=== PATIENT | male | born 1935 | race African-American/Black ===

== ENCOUNTER 2018-02-28 08:43 | Inpatient (IN) | payer MEDICARE, OTHER ==
[2018-02-28] VITALS (36 sets, daily range): BP systolic 107–160; BP diastolic 54–104
[~2018-02-28] VITALS: Ht 182.9 cm; Wt 76.7 kg
[2018-02-28] MEDS ORDERED: SODIUM CHLORIDE 0.9% 1,000 ML IV ONE ×3 (09:01→11:15)
[2018-02-28] MEDS ORDERED: PIPERACILLIN/TAZ 3.375G PREMIX 50 ML IV ONE (10:00)
[2018-02-28] MEDS ORDERED: VANCOMYCIN 1 G PREMIX 200 ML IV ONE (10:00)
[2018-02-28] MEDS ORDERED: SODIUM CHLORIDE 0.9% 1000ML BAG (SEPSIS BOLUS) IV ONE (10:00)
[2018-02-28 10:09] LABS: BG BASE EXCESS -8.3 mmol/L (-2.0-2.0); BG CARBOXYHEMOGLOBIN 0.4 % (0.5-1.5); BG DEOXYHEMOGLOBIN 2.7 % (0.0-5.0); BG FRACTION INSPIRED OXYGEN 21; BG HCO3 ACT 15.1 mmol/L (22.0-26.0); BG METHEMOGLOBIN 0.3 % (0.0-1.5); BG OXYGEN SATURATION 97.3 % (92.0-98.5); BG OXYHEMOGLOBIN 96.6 % (94.0-97.0); BG PCO2 26.8 mmHg (35.0-45.0); BG PO2 105.7 mmHg (75.0-100.0); BG SAMPLE SITE RIGHT BRACHIAL; BG TOTAL HEMOGLOBIN 15.1 g/dL (12.0-18.0); BG VENT MODE ROOM AIR
[2018-02-28 10:22] LABS: HEMATOCRIT. 50.9 % (42.0-52.0); HEMOGLOBIN. 16.6 g/dL (14.0-18.0); MEAN CORPUSCULAR HEMOGLOBIN 29.4 pg (28.0-32.0); MEAN CORPUSCULAR VOLUME 90.3 fL (80.0-94.0); MEAN PLATELET VOLUME 9.4 fl (7.4-10.4); PLATELET 185 x1000/uL (130-400); RED BLOOD CELL COUNT 5.64 mill/uL (4.7-6.1); RED CELL DISTRIBUTION WIDTH 14.9 % (11.6-14.6)
[2018-02-28 10:27] LABS: CHLORIDE 108 mEq/L (98-107)
[2018-02-28 10:35] LABS: AMMONIA < 10 uMol/L (<32); ETHANOL BLOOD < 10 mg/dL
[2018-02-28 10:50] LABS: CREATINE KINASE 1672 IU/L (39-308); PLATELET ESTIMATE NORMAL
[2018-02-28] MEDS ORDERED: DEXTROSE 50% WATER 50ML SYRINGE IV ONE ×2 (11:00→12:15)
[2018-02-28] MEDS ORDERED: INSULIN REGULAR (HUMULIN R) UD 100 UNITS/ML SYR IV ONE (11:00)
[2018-02-28] MEDS ORDERED: LIDOCAINE HCL 1% 20ML VIAL (Pyxis) INJ ONE (11:34)
[2018-02-28] MEDS ORDERED: SODIUM BICARBONATE 4% (2.4MEQ) 5ML VIAL IV ONE (11:35)
[2018-02-28] MEDS ORDERED: CALCIUM GLUCONATE 100MG/ML 10ML VIAL IV ONE (11:45)
[2018-02-28] MEDS ORDERED: INSULIN REGULAR (HUMULIN R) 300UNITS/3ML IV ONE (12:00)
[2018-02-28] MEDS: CALCIUM GLUCONATE 1,000 MG in DEXT 5% WATER 100 ML IV SCH ×2 (13:12→13:24)
[2018-02-28] MEDS ORDERED: ONDANSETRON HCL 4MG/2ML VIAL IV PRN (13:45)
[2018-02-28] MEDS ORDERED: MORPHINE SULFATE 4 MG/ML CPJ (NOT FOR IM USE) IV PRN (14:45)
[2018-02-28] MEDS ORDERED: CLONIDINE 0.1MG TABLET PO PRN (14:45)
[2018-02-28] MEDS ORDERED: ACETAMINOPHEN 325MG TABLET PO PRN (14:45)
[2018-02-28] MEDS ORDERED: HYDROCODONE/ACETAMINOPHEN 5/325MG TABLET PO PRN (14:45)
[2018-02-28] MEDS ORDERED: TAMSULOSIN HCL 0.4MG SR CAPSULE PO SCH (15:00)
[2018-02-28] MEDS ORDERED: SODIUM CHLORIDE 0.9% 1,000 ML IV SCH (15:15)
[2018-02-28] MEDS ORDERED: IPRATROPIUM/ALBUTEROL 0.5-3(2.5)MG/3ML NEB HHN PRN (15:45)
[2018-02-28] MEDS ORDERED: DEXTROSE 5% WATER 1,000 ML IV SCH (16:30)
[2018-02-28] MEDS ORDERED: SODIUM BICARBONATE 8.4% 1 MEQ/ML 50ML SYR IV NR (16:30)
[2018-02-28] MEDS: PIPERACILLIN/TAZ 2.25G PREMIX 50 ML IV SCH (16:51)
[2018-02-28] MEDS: ENOXAPARIN 30MG/0.3ML SYR SUBCUT SCH (16:53)
[2018-02-28] MEDS: PANTOPRAZOLE SODIUM 40 MG/VIAL IV SCH (16:54)
[2018-02-28] MEDS ORDERED: VANCOMYCIN 500 MG PREMIX 100 ML IV NR (17:30)
[2018-02-28 17:48] LABS: HEPATITIS B SURFACE ANTIGEN NEGATIVE
[2018-02-28 18:17] LABS: HEPATITIS B CORE AB IGM NEGATIVE
[2018-02-28 18:18] LABS: HEPATITIS A AB IGM NEGATIVE (NEGATIVE)
[2018-02-28] MEDS: FOLIC ACID 1 MG, THIAMINE HCL 100 MG, MVI, ADULT NO.1 10 ML in DEXTROSE 5% WATER 1,000 ML IV SCH ×4 (19:57)
[2018-02-28] MEDS ORDERED: MINERAL OIL 30ML BOTTLE PO NR (20:00)
[2018-02-28 20:05] LABS: CLARITY URINE CLEAR (CLEAR); COLOR URINE YELLOW (YELLOW); KETONES URINE NEGATIVE (NEGATIVE); LEUKOCYTE ESTERASE URINE TRACE (NEGATIVE); NITRITE URINE NEGATIVE (NEGATIVE); OCCULT BLOOD URINE 3+ (NEGATIVE); PROTEIN URINE NEGATIVE (NEGATIVE); SPECIFIC GRAVITY URINE 1.018 (1.005-1.030); UROBILINOGEN URINE 0.2 E.U./dL (0.2-1.0)
[2018-02-28 20:16] LABS: *AMPHETAMINES SCREEN URINE NEGATIVE (NEGATIVE); *BARBITURATES SCREEN URINE NEGATIVE (NEGATIVE); *BENZODIAZEPINES SCREEN URINE NEGATIVE (NEGATIVE)
[2018-02-28 20:17] LABS: *COCAINE SCREEN URINE NEGATIVE (NEGATIVE); CANNABINOID URINE SCREEN NEGATIVE (NEGATIVE); METHADONE URINE SCREEN NEGATIVE (NEGATIVE); OPIATES URINE SCREEN NEGATIVE (NEGATIVE); PHENCYCLIDINE URINE SCREEN NEGATIVE (NEGATIVE)
[2018-02-28] MEDS: IPRATROPIUM/ALBUTEROL 0.5-3(2.5)MG/3ML NEB HHN SCH (21:57)
[2018-02-28] MEDS ORDERED: SODIUM CHLORIDE 0.9% 1,000 ML IV NR (23:34)
[2018-03-01] VITALS (95 sets, daily range): BP systolic 92–131; BP diastolic 44–93
[2018-03-01] MEDS ORDERED: METOPROLOL TARTRATE 50MG TABLET PO SCH (00:58)
[2018-03-01] MEDS: IPRATROPIUM/ALBUTEROL 0.5-3(2.5)MG/3ML NEB HHN SCH ×4 (04:31→20:30)
[2018-03-01 05:10] LABS: HEMATOCRIT. 40.5 % (42.0-52.0); HEMOGLOBIN. 13.2 g/dL (14.0-18.0); MEAN CORPUSCULAR HEMOGLOBIN 29.5 pg (28.0-32.0); MEAN CORPUSCULAR VOLUME 90.3 fL (80.0-94.0); MEAN PLATELET VOLUME 9.1 fl (7.4-10.4); PLATELET 154 x1000/uL (130-400); RED BLOOD CELL COUNT 4.48 mill/uL (4.7-6.1); RED CELL DISTRIBUTION WIDTH 14.9 % (11.6-14.6)
[2018-03-01 05:16] LABS: CHLORIDE 123 mEq/L (98-107)
[2018-03-01 05:25] LABS: PHOSPHORUS 4.1 mg/dL (2.5-4.9)
[2018-03-01 05:38] LABS: CREATINE KINASE 1572 IU/L (39-308)
[2018-03-01 06:10] LABS: PLATELET ESTIMATE NORMAL
[2018-03-01] MEDS ORDERED: DEXT 5%/0.2% NACL 1,000 ML IV SCH (06:15)
[2018-03-01] MEDS: PIPERACILLIN/TAZ 2.25G PREMIX 50 ML IV SCH (06:38)
[2018-03-01] MEDS: METOPROLOL TARTRATE 50MG TABLET NG SCH ×3 (08:19→22:19)
[2018-03-01] MEDS: PANTOPRAZOLE SODIUM 40 MG/VIAL IV SCH (08:20)
[2018-03-01] MEDS: DEXTROSE 5% WATER 1,000 ML IV SCH ×2 (08:20→21:04)
[2018-03-01 08:34] LABS: BG BASE EXCESS -2.2 mmol/L (-2.0-2.0); BG CARBOXYHEMOGLOBIN 0.7 % (0.5-1.5); BG FRACTION INSPIRED OXYGEN 28; BG HCO3 ACT 21.2 mmol/L (22.0-26.0); BG METHEMOGLOBIN 0.3 % (0.0-1.5); BG PCO2 32.6 mmHg (35.0-45.0); BG PH 7.432 (7.350-7.450); BG PO2 182.2 mmHg (75.0-100.0); BG SAMPLE SITE RIGHT RADIAL; BG TOTAL HEMOGLOBIN 13.3 g/dL (12.0-18.0); BG VENT MODE NASAL CANNULA
[2018-03-01] MEDS ORDERED: MULTIVITAMINS,THER W-MINERALS TABLET PO SCH (09:00)
[2018-03-01] MEDS ORDERED: THIAMINE HCL 100MG TABLET PO SCH (09:00)
[2018-03-01] MEDS ORDERED: LACTULOSE 20G/30ML UDC PO PRN ×2 (10:15→11:45)
[2018-03-01] MEDS ORDERED: MINERAL OIL ENEMA 133ML PR SCH (10:15)
[2018-03-01] MEDS: DOCUSATE SODIUM SUGAR FREE 100MG/10ML UDC NG SCH (10:54)
[2018-03-01] MEDS: FOLIC ACID 1 MG, THIAMINE HCL 100 MG, MVI, ADULT NO.1 10 ML in DEXTROSE 5% WATER 1,000 ML IV SCH ×4 (10:54)
[2018-03-01] MEDS ORDERED: MINERAL OIL 30ML BOTTLE PO SCH (11:00)
[2018-03-01] MEDS ORDERED: SORBITOL 70% SOLN 30ML PO NR (11:15)
[2018-03-01] MEDS ORDERED: DOCUSATE SODIUM 250MG CAPSULE PO ONE (11:45)
[2018-03-01 17:36] LABS: T4 FREE 1.14 ng/dL (0.76-1.46)
[2018-03-01] MEDS: ENOXAPARIN 30MG/0.3ML SYR SUBCUT SCH (17:56)
[2018-03-01] MEDS ORDERED: PIPERACILLIN/TAZ 2.25G PREMIX 50 ML IV SCH (18:00)
[2018-03-01 18:10] LABS: FOLIC ACID (FOLATE) SERUM >20 ng/mL ng/mL (>5.38)
[2018-03-01 18:22] LABS: VITAMIN B12 SERUM 580 pg/mL (211-911)
[2018-03-01] MEDS ORDERED: POTASSIUM CHLORIDE INJ 40 MEQ in DEXT 5% WATER 250 ML IV NR (22:00)
[2018-03-02] VITALS (82 sets, daily range): BP systolic 94–138; BP diastolic 52–96
[2018-03-02] MEDS: IPRATROPIUM/ALBUTEROL 0.5-3(2.5)MG/3ML NEB HHN SCH ×4 (01:49→19:55)
[2018-03-02] MEDS: PIPERACILLIN/TAZ 2.25G PREMIX 50 ML IV SCH ×3 (05:21→19:38)
[2018-03-02] MEDS: METOPROLOL TARTRATE 50MG TABLET NG SCH ×3 (05:22→20:52)
[2018-03-02 06:32] LABS: HEMATOCRIT. 40.3 % (42.0-52.0); HEMOGLOBIN. 13.2 g/dL (14.0-18.0); MEAN CORPUSCULAR HEMOGLOBIN 30.3 pg (28.0-32.0); MEAN CORPUSCULAR VOLUME 92.4 fL (80.0-94.0); MEAN PLATELET VOLUME 9.8 fl (7.4-10.4); PLATELET 134 x1000/uL (130-400); RED BLOOD CELL COUNT 4.37 mill/uL (4.7-6.1); RED CELL DISTRIBUTION WIDTH 14.7 % (11.6-14.6)
[2018-03-02] MEDS: FOLIC ACID 1MG TABLET NG SCH (08:55)
[2018-03-02] MEDS: PANTOPRAZOLE SODIUM 40 MG/VIAL IV SCH ×3 (08:55→20:52)
[2018-03-02] MEDS: DOCUSATE SODIUM SUGAR FREE 100MG/10ML UDC NG SCH (08:55)
[2018-03-02] MEDS: THIAMINE HCL 100MG TABLET NG SCH (08:55)
[2018-03-02] MEDS: MULTIVITAMINS,THER W-MINERALS TABLET NG SCH (08:56)
[2018-03-02] MEDS ORDERED: DOCUSATE SODIUM SUGAR FREE 100MG/10ML UDC NG SCH (09:00)
[2018-03-02 09:08] LABS: HIV SCREEN 4G Non Reactive (Non Reactive)
[2018-03-02] MEDS: DEXTROSE 5% WATER 1,000 ML IV SCH ×2 (09:09→22:58)
[2018-03-02] MEDS ORDERED: LACTULOSE 20G/30ML UDC PO PRN (09:30)
[2018-03-02] MEDS ORDERED: SORBITOL 70% SOLN 30ML PO SCH (09:30)
[2018-03-02] MEDS ORDERED: BISACODYL 5MG TABLET PO PRN (09:30)
[2018-03-02] MEDS ORDERED: NA PHOS,M-B/NA PHOS,DI-BA ENEMA 118ML PR SCH (09:30)
[2018-03-02] MEDS ORDERED: ENOXAPARIN 80MG/0.8ML SYR SUBCUT SCH (09:45)
[2018-03-02 09:51] LABS: CHLORIDE 114 mEq/L (98-107)
[2018-03-02 09:55] LABS: AMYLASE 87 IU/L (25-115)
[2018-03-02 09:57] LABS: PHOSPHORUS 1.5 mg/dL (2.5-4.9)
[2018-03-02 11:50] LABS: PLATELET ESTIMATE NORMAL
[2018-03-02 13:07] LABS: *CREATININE RANDOM URINE 109.8 mg/dL (Not Estab.); MICROALBUMIN RANDOM URINE 47.9 ug/mL (Not Estab.)
[2018-03-02] MEDS: BISACODYL 10MG SUPP PR PRN (18:15)
[2018-03-02] MEDS: ENOXAPARIN 60MG/0.6ML SYR SUBCUT SCH (20:52)
[2018-03-03] VITALS (43 sets, daily range): BP systolic 103–141; BP diastolic 58–85
[2018-03-03] MEDS: IPRATROPIUM/ALBUTEROL 0.5-3(2.5)MG/3ML NEB HHN SCH ×4 (01:53→20:56)
[2018-03-03] MEDS: PIPERACILLIN/TAZ 2.25G PREMIX 50 ML IV SCH ×2 (04:50→11:39)
[2018-03-03 05:25] LABS: HEMOGLOBIN. 13.1 g/dL (14.0-18.0); MEAN CORPUSCULAR HEMOGLOBIN 29.7 pg (28.0-32.0); MEAN CORPUSCULAR VOLUME 90.5 fL (80.0-94.0); MEAN PLATELET VOLUME 9.6 fl (7.4-10.4); PLATELET 172 x1000/uL (130-400); RED BLOOD CELL COUNT 4.42 mill/uL (4.7-6.1); RED CELL DISTRIBUTION WIDTH 14.6 % (11.6-14.6)
[2018-03-03 05:33] LABS: CHLORIDE 108 mEq/L (98-107)
[2018-03-03] MEDS: METOPROLOL TARTRATE 50MG TABLET NG SCH ×3 (05:44→21:06)
[2018-03-03] MEDS ORDERED: POTASSIUM CHLORIDE INJ 40 MEQ in DEXT 5% WATER 250 ML IV ONE (06:30)
[2018-03-03] MEDS: MULTIVITAMINS,THER W-MINERALS TABLET NG SCH (08:04)
[2018-03-03] MEDS: THIAMINE HCL 100MG TABLET NG SCH (08:04)
[2018-03-03] MEDS: FOLIC ACID 1MG TABLET NG SCH (08:04)
[2018-03-03] MEDS: PANTOPRAZOLE SODIUM 40 MG/VIAL IV SCH ×2 (08:05→21:05)
[2018-03-03] MEDS: DOCUSATE SODIUM SUGAR FREE 100MG/10ML UDC NG SCH ×2 (08:05→17:50)
[2018-03-03] MEDS: ENOXAPARIN 60MG/0.6ML SYR SUBCUT SCH ×2 (08:06→21:05)
[2018-03-03] MEDS: KCL 20MEQ/100ML PREMIX 100 ML IV SCH ×2 (08:22→10:16)
[2018-03-03] MEDS: DEXTROSE 5% WATER 1,000 ML IV SCH (11:40)
[2018-03-03 12:40] LABS: PLATELET ESTIMATE NORMAL
[2018-03-03] MEDS ORDERED: POTASSIUM PHOS,M-BASIC-D-BASIC 20 MMOL in DEXT 5% WATER 250 ML IV SCH (15:00)
[2018-03-03] MEDS: PIPERACILLIN/TAZ 3.375G PREMIX 50 ML IV SCH ×2 (17:51→23:31)
[2018-03-03] MEDS ORDERED: POTASSIUM PHOS,M-BASIC-D-BASIC 20 MMOL in DEXT 5% WATER 243.3333 ML IV NR (20:00)
[2018-03-04] VITALS (16 sets, daily range): BP systolic 102–142; BP diastolic 63–90
[2018-03-04] MEDS: IPRATROPIUM/ALBUTEROL 0.5-3(2.5)MG/3ML NEB HHN SCH ×4 (02:19→19:52)
[2018-03-04] MEDS: DEXTROSE 5% WATER 1,000 ML IV SCH (03:20)
[2018-03-04] MEDS: PIPERACILLIN/TAZ 3.375G PREMIX 50 ML IV SCH ×3 (05:42→18:18)
[2018-03-04] MEDS: METOPROLOL TARTRATE 50MG TABLET NG SCH ×3 (05:42→20:46)
[2018-03-04 06:24] LABS: HEMATOCRIT 42.2 % (42.0-52.0); HEMOGLOBIN 13.7 g/dL (14.0-18.0); MEAN CORPUSCULAR HEMOGLOBIN 29.4 pg (28.0-32.0); MEAN CORPUSCULAR VOLUME 90.2 fL (80.0-94.0); PLATELET 183 x1000/uL (130-400); RED BLOOD CELL COUNT 4.68 mill/uL (4.7-6.1); RED CELL DISTRIBUTION WIDTH 14.4 % (11.6-14.6)
[2018-03-04 06:42] LABS: CHLORIDE 105 mEq/L (98-107)
[2018-03-04 06:52] LABS: PHOSPHORUS 1.7 mg/dL (2.5-4.9)
[2018-03-04] MEDS: DOCUSATE SODIUM SUGAR FREE 100MG/10ML UDC NG SCH ×2 (09:36→18:18)
[2018-03-04] MEDS: THIAMINE HCL 100MG TABLET NG SCH (09:37)
[2018-03-04] MEDS: FOLIC ACID 1MG TABLET NG SCH (09:37)
[2018-03-04] MEDS: ENOXAPARIN 60MG/0.6ML SYR SUBCUT SCH (09:37)
[2018-03-04] MEDS: MULTIVITAMINS,THER W-MINERALS TABLET NG SCH (09:37)
[2018-03-04] MEDS: PANTOPRAZOLE SODIUM 40 MG/VIAL IV SCH (09:37)
[2018-03-04] MEDS ORDERED: POTASSIUM-SODIUM PHOSPHATE POWDER PACKET PO NR (11:00)
[2018-03-04] MEDS ORDERED: KCL 20MEQ/100ML PREMIX 100 ML IV NR (11:00)
[2018-03-04 11:10] LABS: CHLORIDE 106 mEq/L (98-107)
[2018-03-04] MEDS ORDERED: MAGNESIUM SULFATE IV NR (12:30)
[2018-03-04] MEDS ORDERED: WATER IV NR (12:30)
[2018-03-04] MEDS ORDERED: DEXT 5% IV NR (12:30)
[2018-03-04 14:55] LABS: BG BASE EXCESS 2.8 mmol/L (-2.0-2.0); BG CARBOXYHEMOGLOBIN 1.1 % (0.5-1.5); BG DEOXYHEMOGLOBIN 2.6 % (0.0-5.0); BG HCO3 ACT 26.7 mmol/L (22.0-26.0); BG METHEMOGLOBIN 0.3 % (0.0-1.5); BG OXYGEN SATURATION 97.4 % (92.0-98.5); BG PCO2 38.6 mmHg (35.0-45.0); BG PH 7.458 (7.350-7.450); BG SAMPLE SITE RIGHT RADIAL; BG VENT MODE ROOM AIR
[2018-03-04] MEDS: ENOXAPARIN 80MG/0.8ML SYR SUBCUT SCH (20:47)
[2018-03-05] VITALS (14 sets, daily range): BP systolic 99–120; BP diastolic 57–77
[2018-03-05] MEDS: PIPERACILLIN/TAZ 3.375G PREMIX 50 ML IV SCH ×5 (00:04→23:31)
[2018-03-05] MEDS: IPRATROPIUM/ALBUTEROL 0.5-3(2.5)MG/3ML NEB HHN SCH ×4 (02:08→21:09)
[2018-03-05 06:07] LABS: BASOPHILS % 0.2 % (0.0-2.0); EOSINOPHILS % 0.6 % (0.0-5.0); HEMATOCRIT. 41.6 % (42.0-52.0); HEMOGLOBIN. 13.6 g/dL (14.0-18.0); LYMPHOCYTES % 9.9 % (20.0-50.0); MEAN CORPUSCULAR HEMOGLOBIN 29.5 pg (28.0-32.0); MEAN CORPUSCULAR VOLUME 90.6 fL (80.0-94.0); MEAN PLATELET VOLUME 10.2 fl (7.4-10.4); MONOCYTES % 7.7 % (2.0-8.0); NEUTROPHILS % 81.6 % (40.0-76.0); PLATELET 182 x1000/uL (130-400); RED CELL DISTRIBUTION WIDTH 14.3 % (11.6-14.6)
[2018-03-05] MEDS: METOPROLOL TARTRATE 50MG TABLET NG SCH ×3 (06:24→21:39)
[2018-03-05 07:40] LABS: CHLORIDE 106 mEq/L (98-107)
[2018-03-05 07:46] LABS: PHOSPHORUS 1.5 mg/dL (2.5-4.9)
[2018-03-05 07:50] LABS: CREATINE KINASE 143 IU/L (39-308)
[2018-03-05 09:34] LABS: HEMATOCRIT 42.1 % (42.0-52.0); HEMOGLOBIN 13.7 g/dL (14.0-18.0); MEAN CORPUSCULAR HEMOGLOBIN 29.8 pg (28.0-32.0); MEAN CORPUSCULAR VOLUME 91.8 fL (80.0-94.0); RED BLOOD CELL COUNT 4.59 mill/uL (4.7-6.1); RED CELL DISTRIBUTION WIDTH 14.7 % (11.6-14.6)
[2018-03-05] MEDS: ENOXAPARIN 80MG/0.8ML SYR SUBCUT SCH ×2 (10:02→21:39)
[2018-03-05] MEDS: MULTIVITAMINS,THER W-MINERALS TABLET NG SCH (10:02)
[2018-03-05] MEDS: FOLIC ACID 1MG TABLET NG SCH (10:02)
[2018-03-05] MEDS: FAMOTIDINE 20MG TABLET NG SCH ×2 (10:02→21:38)
[2018-03-05] MEDS: THIAMINE HCL 100MG TABLET NG SCH (10:02)
[2018-03-05] MEDS: DOCUSATE SODIUM SUGAR FREE 100MG/10ML UDC NG SCH ×2 (10:03→17:28)
[2018-03-05 11:50] LABS: PLATELET 146 x1000/uL (130-400)
[2018-03-05] MEDS ORDERED: POTASSIUM PHOS,M-BASIC-D-BASIC 20 MMOL in DEXT 5% WATER 243.3333 ML IV ONE (13:30)
[2018-03-05] MEDS ORDERED: POTASSIUM PHOS,M-BASIC-D-BASIC 20 MMOL in DEXT 5% WATER 243.3333 ML IV NR (15:00)
[2018-03-05] MEDS: BISACODYL 10MG SUPP PR PRN (21:41)
[2018-03-06] VITALS (19 sets, daily range): BP systolic 103–132; BP diastolic 55–81
[2018-03-06] MEDS: IPRATROPIUM/ALBUTEROL 0.5-3(2.5)MG/3ML NEB HHN SCH ×3 (01:36→21:12)
[2018-03-06] MEDS: METOPROLOL TARTRATE 50MG TABLET NG SCH ×3 (05:55→21:36)
[2018-03-06] MEDS: PIPERACILLIN/TAZ 3.375G PREMIX 50 ML IV SCH ×4 (05:55→23:42)
[2018-03-06] MEDS: FOLIC ACID 1MG TABLET NG SCH (09:30)
[2018-03-06] MEDS: FAMOTIDINE 20MG TABLET NG SCH ×2 (09:30→21:36)
[2018-03-06] MEDS: DOCUSATE SODIUM SUGAR FREE 100MG/10ML UDC NG SCH ×2 (09:30→18:10)
[2018-03-06] MEDS: MULTIVITAMINS,THER W-MINERALS TABLET NG SCH (09:31)
[2018-03-06] MEDS: THIAMINE HCL 100MG TABLET NG SCH (09:31)
[2018-03-06] MEDS: ENOXAPARIN 80MG/0.8ML SYR SUBCUT SCH ×2 (09:31→21:35)
[2018-03-07] VITALS (15 sets, daily range): BP systolic 110–139; BP diastolic 45–76
[2018-03-07] MEDS: IPRATROPIUM/ALBUTEROL 0.5-3(2.5)MG/3ML NEB HHN SCH ×4 (01:27→20:00)
[2018-03-07] MEDS: PIPERACILLIN/TAZ 3.375G PREMIX 50 ML IV SCH ×4 (05:37→23:40)
[2018-03-07] MEDS: METOPROLOL TARTRATE 50MG TABLET NG SCH ×3 (05:37→21:38)
[2018-03-07 06:09] LABS: BASOPHILS % 0.4 % (0.0-2.0); EOSINOPHILS % 0.6 % (0.0-5.0); HEMATOCRIT. 38.2 % (42.0-52.0); HEMOGLOBIN. 12.5 g/dL (14.0-18.0); LYMPHOCYTES % 7.6 % (20.0-50.0); MEAN CORPUSCULAR HEMOGLOBIN 29.5 pg (28.0-32.0); MEAN CORPUSCULAR VOLUME 90.1 fL (80.0-94.0); MEAN PLATELET VOLUME 9.6 fl (7.4-10.4); MONOCYTES % 7.9 % (2.0-8.0); NEUTROPHILS % 83.5 % (40.0-76.0); PLATELET 213 x1000/uL (130-400); RED BLOOD CELL COUNT 4.23 mill/uL (4.7-6.1); RED CELL DISTRIBUTION WIDTH 14.3 % (11.6-14.6)
[2018-03-07] MEDS: THIAMINE HCL 100MG TABLET NG SCH (09:59)
[2018-03-07] MEDS: ENOXAPARIN 80MG/0.8ML SYR SUBCUT SCH ×2 (09:59→21:38)
[2018-03-07] MEDS: FAMOTIDINE 20MG TABLET NG SCH ×2 (09:59→21:38)
[2018-03-07] MEDS: MULTIVITAMINS,THER W-MINERALS TABLET NG SCH (09:59)
[2018-03-07] MEDS: DOCUSATE SODIUM SUGAR FREE 100MG/10ML UDC NG SCH ×2 (09:59→17:20)
[2018-03-07] MEDS: FOLIC ACID 1MG TABLET NG SCH (09:59)
[2018-03-07 11:28] LABS: CHLORIDE 106 mEq/L (98-107)
[2018-03-07 11:40] LABS: PHOSPHORUS 1.7 mg/dL (2.5-4.9)
[2018-03-07] MEDS ORDERED: POTASSIUM PHOS,M-BASIC-D-BASIC 20 MMOL in DEXT 5% WATER 243.3333 ML IV NR (16:30)
[2018-03-08] VITALS (15 sets, daily range): BP systolic 97–126; BP diastolic 65–84
[2018-03-08] MEDS: PIPERACILLIN/TAZ 3.375G PREMIX 50 ML IV SCH (05:28)
[2018-03-08] MEDS: METOPROLOL TARTRATE 50MG TABLET NG SCH ×3 (05:29→22:06)
[2018-03-08] MEDS: FAMOTIDINE 20MG TABLET NG SCH ×2 (08:43→20:30)
[2018-03-08] MEDS: FOLIC ACID 1MG TABLET NG SCH (08:43)
[2018-03-08] MEDS: DOCUSATE SODIUM SUGAR FREE 100MG/10ML UDC NG SCH ×2 (08:43→18:12)
[2018-03-08] MEDS: ENOXAPARIN 80MG/0.8ML SYR SUBCUT SCH ×2 (08:43→20:30)
[2018-03-08] MEDS: THIAMINE HCL 100MG TABLET NG SCH (08:43)
[2018-03-08] MEDS: MULTIVITAMINS,THER W-MINERALS TABLET NG SCH (08:43)
[2018-03-08] MEDS: IPRATROPIUM/ALBUTEROL 0.5-3(2.5)MG/3ML NEB HHN SCH ×4 (09:00→21:45)
[2018-03-08 10:11] LABS: BASOPHILS % 0.3 % (0.0-2.0); EOSINOPHILS % 0.8 % (0.0-5.0); HEMOGLOBIN. 13.8 g/dL (14.0-18.0); LYMPHOCYTES % 7.7 % (20.0-50.0); MEAN CORPUSCULAR HEMOGLOBIN 29.7 pg (28.0-32.0); MEAN CORPUSCULAR VOLUME 90.2 fL (80.0-94.0); MEAN PLATELET VOLUME 9.1 fl (7.4-10.4); MONOCYTES % 7.6 % (2.0-8.0); NEUTROPHILS % 83.6 % (40.0-76.0); PLATELET 218 x1000/uL (130-400); RED BLOOD CELL COUNT 4.65 mill/uL (4.7-6.1); RED CELL DISTRIBUTION WIDTH 14.1 % (11.6-14.6)
[2018-03-08 10:15] LABS: CHLORIDE 103 mEq/L (98-107)
[2018-03-08] MEDS: POTASSIUM-SODIUM PHOSPHATE POWDER PACKET PO SCH ×2 (16:03→19:30)
== END 2018-03-08 23:15 | DRG 871 ==
LOC: ER 09:30 → EDBEDREQ 11:17 → ENRESERV 11:58 → MICUSO 14:12 → 5EST 03-03 19:30
PROVIDERS: ADMIT Internal Medicine; ATTEND Internal Medicine
PROC: 06HM33Z Insertion of Infusion Device into Right Femoral Vein, Percutaneous Approach (ICD-10-PCS; principal; 2018-02-28)
PROC: B54BZZA Ultrasonography of Right Lower Extremity Veins, Guidance (ICD-10-PCS; 2018-02-28)
DX: A41.9 Sepsis, unspecified organism (principal); L89.893 Pressure ulcer of other site, stage 3; G92 Toxic encephalopathy; N17.0 Acute kidney failure with tubular necrosis; K85.90 Acute pancreatitis without necrosis or infection, unspecified; E43 Unspecified severe protein-calorie malnutrition; I21.4 Non-ST elevation (NSTEMI) myocardial infarction; I50.21 Acute systolic (congestive) heart failure; J96.01 Acute respiratory failure with hypoxia; J69.0 Pneumonitis due to inhalation of food and vomit; M62.82 Rhabdomyolysis; E87.0 Hyperosmolality and hypernatremia; E87.2 Acidosis; N13.6 Pyonephrosis; M87.852 Other osteonecrosis, left femur; M87.851 Other osteonecrosis, right femur; E87.5 Hyperkalemia; E86.0 Dehydration; D64.9 Anemia, unspecified; E78.00 Pure hypercholesterolemia, unspecified; E83.39 Other disorders of phosphorus metabolism; E87.6 Hypokalemia; E87.8 Other disorders of electrolyte and fluid balance, not elsewhere classified; F03.90 Unspecified dementia, unspecified severity, without behavioral disturbance, psychotic disturbance, mood disturbance, and anxiety; F10.20 Alcohol dependence, uncomplicated; H91.90 Unspecified hearing loss, unspecified ear; I11.0 Hypertensive heart disease with heart failure; I48.91 Unspecified atrial fibrillation; I49.3 Ventricular premature depolarization; I71.2 Thoracic aortic aneurysm, without rupture; K56.41 Fecal impaction; K76.89 Other specified diseases of liver; E04.1 Nontoxic single thyroid nodule; K80.70 Calculus of gallbladder and bile duct without cholecystitis without obstruction; L89.150 Pressure ulcer of sacral region, unstageable; K86.89 Other specified diseases of pancreas; N32.0 Bladder-neck obstruction; N32.89 Other specified disorders of bladder; M19.90 Unspecified osteoarthritis, unspecified site; N40.0 Benign prostatic hyperplasia without lower urinary tract symptoms; Z78.1 Physical restraint status; Z68.22 Body mass index [BMI] 22.0-22.9, adult; I25.2 Old myocardial infarction; Z87.891 Personal history of nicotine dependence; Z79.899 Other long term (current) drug therapy; Z83.3 Family history of diabetes mellitus; Z82.49 Family history of ischemic heart disease and other diseases of the circulatory system
CPT/HCPCS: 36415; 36556; 36600; 70450; 70551; 71045; 71250; 72125; 74018; 74176; 74181; 76937; 78580; 80048; 80053; 80076; 80202; 80305; 81003; 82043; 82140; 82150; 82330; 82375; 82550; 82570; 82607; 82746; 82805; 82962; 83036; 83605; 83690; 83735; 83880; 83935; 84100; 84134; 84156; 84300; 84439; 84443; 84481; 84484; 85025; 85027; 85379; 86301; 86705; 86709; 86803; 87040; 87086; 87186; 87340; 92610; 93005; 93306; 93970; 94640; 96365; 96367; 96375; 97162; 97530; 99285; A6261; C1752; C9113; G0482; J0610; J1642; J1650; J1815; J2543; J3370; J3411; J3475; J3480; J3490; J7030; J7040; J7050; J7060; J7070; J7620; A4315

== ENCOUNTER 2018-05-20 01:26 | Emergency (ER) | payer OTHER ==
[~2018-05-20] VITALS: Ht 190.5 cm; Wt 95.4 kg
[~2018-05-20 01:26] MED LIST: ALBU05 IH; APIX2.5T PO; CLON-457 PO; FINA1TAB18 PO; FOLI-43 PO; MEMA5TAB7 MT; ONDA4TAB8 PO; TAMS-11 PO; [UNRECOGNIZED DRUG - CODE] IV
[2018-05-20 05:51] LABS: CLARITY URINE CLEAR (CLEAR); COLOR URINE ORANGE (YELLOW); KETONES URINE NEGATIVE (NEGATIVE); LEUKOCYTE ESTERASE URINE 3+ (NEGATIVE); NITRITE URINE POSITIVE (NEGATIVE); OCCULT BLOOD URINE 3+ (NEGATIVE); PH URINE 6.5 (4.5-8.0); PROTEIN URINE 1+ (NEGATIVE); SPECIFIC GRAVITY URINE 1.003 (1.005-1.030); UROBILINOGEN URINE 0.2 E.U./dL (0.2-1.0)
[2018-05-20 07:06] VITALS: BP 129/72
== END 2018-05-20 07:28 | disposition home or self-care (01) ==
LOC: ER 01:49
DX: N39.0 Urinary tract infection, site not specified (principal); E11.9 Type 2 diabetes mellitus without complications; I10 Essential (primary) hypertension; F03.90 Unspecified dementia, unspecified severity, without behavioral disturbance, psychotic disturbance, mood disturbance, and anxiety; Z79.899 Other long term (current) drug therapy; Z88.0 Allergy status to penicillin
CPT/HCPCS: 51702; 99284; A4315

== ENCOUNTER 2018-06-14 12:20 | Inpatient (IN) | payer MEDICARE, OTHER ==
[~2018-06-14] VITALS: Ht 182.9 cm; Wt 98.4 kg
[2018-06-14] MEDS ORDERED: ACETAMINOPHEN 325MG TABLET PO STA (13:11)
[2018-06-14] MEDS ORDERED: VANCOMYCIN 1 G PREMIX 200 ML IV ONE (13:15)
[2018-06-14] MEDS ORDERED: SODIUM CHLORIDE 0.9% 1000ML BAG (SEPSIS BOLUS) IV ONE (13:15)
[2018-06-14] MEDS ORDERED: PIPERACILLIN/TAZ 3.375G PREMIX 50 ML IV ONE (13:15)
[2018-06-14 13:53] LABS: CHLORIDE 105 mEq/L (98-107)
[2018-06-14 14:01] LABS: INR 1.1; PROTHROMBIN TIME 10.7 sec (9.1-11.1)
[2018-06-14 14:06] LABS: HEMOGLOBIN. 11.5 g/dL (14.0-18.0); MEAN CORPUSCULAR HEMOGLOBIN 29.6 pg (28.0-32.0); MEAN CORPUSCULAR VOLUME 90.5 fL (80.0-94.0); PLATELET 155 x1000/uL (130-400); RED BLOOD CELL COUNT 3.87 mill/uL (4.7-6.1); RED CELL DISTRIBUTION WIDTH 15.8 % (11.6-14.6)
[2018-06-14 14:27] LABS: PLATELET ESTIMATE NORMAL
[2018-06-14 14:34] LABS: CLARITY URINE CLOUDY (CLEAR); COLOR URINE YELLOW (YELLOW); KETONES URINE NEGATIVE (NEGATIVE); LEUKOCYTE ESTERASE URINE 3+ (NEGATIVE); NITRITE URINE POSITIVE (NEGATIVE); OCCULT BLOOD URINE 3+ (NEGATIVE); PROTEIN URINE TRACE (NEGATIVE); SPECIFIC GRAVITY URINE 1.011 (1.005-1.030); UROBILINOGEN URINE 0.2 E.U./dL (0.2-1.0)
[2018-06-14] MEDS: SODIUM CHLORIDE 0.9% 1,000 ML IV SCH (18:08)
[2018-06-14] MEDS ORDERED: HYDROCODONE/ACETAMINOPHEN 5/325MG TABLET PO PRN (18:15)
[2018-06-14] MEDS ORDERED: PIPERACILLIN/TAZ 3.375G PREMIX 50 ML IV SCH (18:15)
[2018-06-14] MEDS ORDERED: ENOXAPARIN 40MG/0.4ML SYR SUBCUT SCH (18:15)
[2018-06-14] MEDS ORDERED: DIPHENHYDRAMINE 50MG/ML VIAL IV PRN (18:15)
[2018-06-14] MEDS ORDERED: ASPIRIN 325MG TABLET PO ONE (18:15)
[2018-06-14] MEDS ORDERED: ACETAMINOPHEN 650MG SUPP PR PRN (18:15)
[2018-06-14] MEDS ORDERED: NA PHOS,M-B/NA PHOS,DI-BA ENEMA 118ML PR PRN (18:15)
[2018-06-14] MEDS ORDERED: GUAIFENESIN 200MG/10ML SUGAR FREE UDC PO PRN (18:15)
[2018-06-14] MEDS ORDERED: ACETAMINOPHEN 650MG/20.3ML UDC GT PRN (18:15)
[2018-06-14] MEDS ORDERED: ONDANSETRON HCL 4MG/2ML INJ IV PRN (18:15)
[2018-06-14] MEDS ORDERED: ACETAMINOPHEN 325MG TABLET PO PRN (18:15)
[2018-06-14] MEDS ORDERED: IPRATROPIUM/ALBUTEROL 0.5-3(2.5)MG/3ML NEB INH PRN (18:15)
[2018-06-14] MEDS ORDERED: DOCUSATE SODIUM 100MG CAPSULE PO PRN (18:15)
[2018-06-14] MEDS ORDERED: MAGNESIUM/ALUMINUM HYDROXIDE/SIMETHICONE 30ML UDC PO PRN (18:15)
[2018-06-14 22:00] VITALS: BP 106/50
[2018-06-14 22:12] VITALS: BP 106/50
[2018-06-14] MEDS: SODIUM CHLORIDE 0.9% INJ 3ML FLUSH IVF SCH (22:56)
[2018-06-14] MEDS: PIPERACILLIN/TAZ 3.375G PREMIX 50 ML IV SCH (23:27)
[2018-06-15] VITALS (11 sets, daily range): BP systolic 87–116; BP diastolic 49–78
[2018-06-15] MEDS ORDERED: MULT1TAB76 PO (03:01)
[2018-06-15] MEDS ORDERED: ZINC220T PO (03:01)
[2018-06-15] MEDS ORDERED: FAMO-135 PO (03:01)
[2018-06-15] MEDS: SODIUM CHLORIDE 0.9% INJ 3ML FLUSH IVF SCH ×3 (06:24→22:08)
[2018-06-15] MEDS: SODIUM CHLORIDE 0.9% 1,000 ML IV SCH ×2 (06:58→12:42)
[2018-06-15] MEDS: PIPERACILLIN/TAZ 3.375G PREMIX 50 ML IV SCH ×3 (06:58→22:11)
[2018-06-15 07:02] LABS: HEMATOCRIT. 31.8 % (42.0-52.0); HEMOGLOBIN. 10.4 g/dL (14.0-18.0); MEAN CORPUSCULAR VOLUME 91.7 fL (80.0-94.0); MEAN PLATELET VOLUME 8.5 fl (7.4-10.4); PLATELET 133 x1000/uL (130-400); RED BLOOD CELL COUNT 3.47 mill/uL (4.7-6.1); RED CELL DISTRIBUTION WIDTH 16.1 % (11.6-14.6)
[2018-06-15 07:08] LABS: CHLORIDE 109 mEq/L (98-107)
[2018-06-15 07:16] LABS: HDL CHOLESTEROL 44 mg/dL (40-59); LDL CHOLESTEROL 52 mg/dL (5-100)
[2018-06-15] MEDS ORDERED: MULTIVIT WITH IRON MINERALS PO PRN (08:15)
[2018-06-15] MEDS ORDERED: FAMOTIDINE 5 MG PO SCH (09:00)
[2018-06-15] MEDS: ZINC SULFATE 220 MG ( 50 ) CAPSULE PO SCH (09:47)
[2018-06-15] MEDS: TAMSULOSIN HCL 0.4MG SR CAPSULE PO SCH (09:47)
[2018-06-15] MEDS: FAMOTIDINE 20MG TABLET PO SCH (09:48)
[2018-06-15] MEDS: ENOXAPARIN 40MG/0.4ML SYR SUBCUT SCH (09:48)
[2018-06-15] MEDS: MULTIVITAMINS,THER W-MINERALS TABLET PO SCH (09:54)
[2018-06-15] MEDS: MEMANTINE HCL 5MG TABLET PO SCH (11:01)
[2018-06-15 17:27] LABS: ATYPICAL LYMPHOCYTES 1; PLATELET ESTIMATE NORMAL
[2018-06-16] VITALS (10 sets, daily range): BP systolic 105–134; BP diastolic 55–92
[2018-06-16] MEDS: SODIUM CHLORIDE 0.9% INJ 3ML FLUSH IVF SCH ×3 (06:00→21:59)
[2018-06-16] MEDS: SODIUM CHLORIDE 0.9% 1,000 ML IV SCH ×2 (07:38→19:06)
[2018-06-16] MEDS: PIPERACILLIN/TAZ 3.375G PREMIX 50 ML IV SCH ×3 (07:46→21:59)
[2018-06-16] MEDS ORDERED: VANCOMYCIN 1500MG in DEXTROSE 5% WATER 250ML IV NR (08:00)
[2018-06-16] MEDS: MEMANTINE HCL 5MG TABLET PO SCH (08:57)
[2018-06-16] MEDS: ZINC SULFATE 220 MG ( 50 ) CAPSULE PO SCH (08:58)
[2018-06-16] MEDS: TAMSULOSIN HCL 0.4MG SR CAPSULE PO SCH (08:58)
[2018-06-16] MEDS: MULTIVITAMINS,THER W-MINERALS TABLET PO SCH (08:58)
[2018-06-16] MEDS: FAMOTIDINE 20MG TABLET PO SCH (08:58)
[2018-06-16] MEDS: ENOXAPARIN 40MG/0.4ML SYR SUBCUT SCH (08:59)
[2018-06-17] VITALS (10 sets, daily range): BP systolic 105–134; BP diastolic 71–82
[2018-06-17] MEDS: VANCOMYCIN 1 G PREMIX 200 ML IV SCH ×2 (00:05→18:00)
[2018-06-17] MEDS: PIPERACILLIN/TAZ 3.375G PREMIX 50 ML IV SCH (05:03)
[2018-06-17] MEDS: SODIUM CHLORIDE 0.9% INJ 3ML FLUSH IVF SCH ×2 (05:03→22:12)
[2018-06-17] MEDS: FAMOTIDINE 20MG TABLET PO SCH (09:49)
[2018-06-17] MEDS: TAMSULOSIN HCL 0.4MG SR CAPSULE PO SCH (09:50)
[2018-06-17] MEDS: ENOXAPARIN 40MG/0.4ML SYR SUBCUT SCH (09:50)
[2018-06-17] MEDS: MULTIVITAMINS,THER W-MINERALS TABLET PO SCH (09:52)
[2018-06-17 09:57] LABS: CHLORIDE 108 mEq/L (98-107)
[2018-06-17] MEDS: MEMANTINE HCL 5MG TABLET PO SCH (10:07)
[2018-06-17] MEDS: ZINC SULFATE 220 MG ( 50 ) CAPSULE PO SCH (10:07)
[2018-06-17] MEDS: SODIUM CHLORIDE 0.9% 1,000 ML IV SCH (22:12)
[2018-06-17 23:40] LABS: BASOPHILS % 0.3 % (0.0-2.0); EOSINOPHILS % 1.5 % (0.0-5.0); HEMATOCRIT. 33.4 % (42.0-52.0); LYMPHOCYTES % 20.5 % (20.0-50.0); MEAN CORPUSCULAR HEMOGLOBIN 29.6 pg (28.0-32.0); MEAN CORPUSCULAR VOLUME 89.7 fL (80.0-94.0); MEAN PLATELET VOLUME 8.5 fl (7.4-10.4); MONOCYTES % 12.9 % (2.0-8.0); NEUTROPHILS % 64.8 % (40.0-76.0); PLATELET 169 x1000/uL (130-400); RED BLOOD CELL COUNT 3.73 mill/uL (4.7-6.1); RED CELL DISTRIBUTION WIDTH 16.1 % (11.6-14.6)
[2018-06-17 23:44] LABS: CHLORIDE 109 mEq/L (98-107)
[2018-06-18] VITALS (7 sets, daily range): BP systolic 93–126; BP diastolic 61–82
[2018-06-18] MEDS: SODIUM CHLORIDE 0.9% INJ 3ML FLUSH IVF SCH (05:34)
[2018-06-18 07:40] LABS: CHLORIDE 111 mEq/L (98-107)
[2018-06-18] MEDS: MULTIVITAMINS,THER W-MINERALS TABLET PO SCH (09:16)
[2018-06-18] MEDS: MEMANTINE HCL 5MG TABLET PO SCH (09:16)
[2018-06-18] MEDS: ZINC SULFATE 220 MG ( 50 ) CAPSULE PO SCH (09:16)
[2018-06-18] MEDS: ENOXAPARIN 40MG/0.4ML SYR SUBCUT SCH (09:17)
[2018-06-18] MEDS: FAMOTIDINE 20MG TABLET PO SCH (09:17)
[2018-06-18] MEDS: TAMSULOSIN HCL 0.4MG SR CAPSULE PO SCH (09:18)
[2018-06-18] MEDS ORDERED: VANCOMYCIN 1500MG in DEXTROSE 5% WATER 250ML IV SCH (12:00)
== END 2018-06-18 19:16 | disposition hospice, home (50) | DRG 872 ==
LOC: ER 12:30 → 5EST 15:17 → EDBEDREQTM 15:18 → EDBEDREQ 15:18 → ENRESERV 18:24
PROVIDERS: ADMIT Family Medicine; ATTEND Family Medicine
DX: A41.9 Sepsis, unspecified organism (principal); N39.0 Urinary tract infection, site not specified; E44.1 Mild protein-calorie malnutrition; R65.20 Severe sepsis without septic shock; E11.9 Type 2 diabetes mellitus without complications; F03.90 Unspecified dementia, unspecified severity, without behavioral disturbance, psychotic disturbance, mood disturbance, and anxiety; H91.90 Unspecified hearing loss, unspecified ear; I10 Essential (primary) hypertension; N13.9 Obstructive and reflux uropathy, unspecified; F10.20 Alcohol dependence, uncomplicated; R26.9 Unspecified abnormalities of gait and mobility; R33.8 Other retention of urine; N40.1 Benign prostatic hyperplasia with lower urinary tract symptoms; Z79.51 Long term (current) use of inhaled steroids; Z79.899 Other long term (current) drug therapy; Z79.2 Long term (current) use of antibiotics; Z68.29 Body mass index [BMI] 29.0-29.9, adult
CPT/HCPCS: 36415; 71045; 80048; 80061; 80202; 83605; 83880; 84145; 84484; 87077; 87186; 93005; 96365; 96366; 96368; 97162; 99291; J1650; J2543; J3370; J7030; J7060

== ENCOUNTER 2018-10-06 21:57 | Inpatient (IN) | payer MEDICARE, OTHER ==
[~2018-10-06] VITALS: Ht 182.9 cm; Wt 95.3 kg
[~2018-10-06 21:57] MED LIST changes: -ALBU05 IH; -APIX2.5T PO; +FAMO-135 PO; -FOLI-43 PO; +MULT1TAB76 PO; -ONDA4TAB8 PO; +ZINC220T PO; -[UNRECOGNIZED DRUG - CODE] IV
[2018-10-06] MEDS ORDERED: CEFTRIAXONE 1 G PREMIX 50 ML IV ONE (22:30)
[2018-10-06 22:49] LABS: HEMATOCRIT. 41.6 % (42.0-52.0); HEMOGLOBIN. 13.8 g/dL (14.0-18.0); MEAN CORPUSCULAR HEMOGLOBIN 28.7 pg (28.0-32.0); MEAN CORPUSCULAR VOLUME 86.5 fL (80.0-94.0); MEAN PLATELET VOLUME 8.3 fl (7.4-10.4); PLATELET 158 x1000/uL (130-400); RED BLOOD CELL COUNT 4.81 mill/uL (4.7-6.1); RED CELL DISTRIBUTION WIDTH 15.5 % (11.6-14.6)
[2018-10-06 22:56] LABS: CHLORIDE 101 mEq/L (98-107)
[2018-10-06] MEDS ORDERED: ONDANSETRON HCL 4MG/2ML INJ IV PRN (23:00)
[2018-10-06] MEDS ORDERED: IPRATROPIUM/ALBUTEROL 0.5-3(2.5)MG/3ML NEB INH PRN (23:00)
[2018-10-06] MEDS ORDERED: NITROGLYCERIN 0.4MG TABLET SL SL PRN (23:00)
[2018-10-06] MEDS ORDERED: CLONIDINE 0.1MG TABLET PO PRN (23:00)
[2018-10-06] MEDS ORDERED: ENOXAPARIN 40MG/0.4ML SYR SUBCUT SCH (23:00)
[2018-10-06] MEDS ORDERED: GUAIFENESIN 200MG/10ML SUGAR FREE UDC PO PRN (23:00)
[2018-10-06] MEDS ORDERED: DOCUSATE SODIUM 100MG CAPSULE PO PRN (23:00)
[2018-10-06] MEDS ORDERED: LEVOFLOXACIN 500MG PREMIX 100 ML IV SCH (23:00)
[2018-10-06] MEDS ORDERED: MAGNESIUM/ALUMINUM HYDROXIDE/SIMETHICONE 30ML UDC PO PRN (23:00)
[2018-10-06] MEDS ORDERED: TRAMADOL 50MG TABLET PO PRN (23:00)
[2018-10-06] MEDS ORDERED: ZOLPIDEM TARTRATE 5MG TABLET PO PRN (23:00)
[2018-10-06] MEDS: SODIUM CHLORIDE 0.9% 1,000 ML IV SCH (23:15)
[2018-10-06 23:18] LABS: PLATELET ESTIMATE NORMAL
[2018-10-06] MEDS ORDERED: ASPIRIN 325MG EC TABLET PO ONE (23:30)
[2018-10-07] VITALS (7 sets, daily range): BP systolic 85–105; BP diastolic 48–62
[2018-10-07 00:36] LABS: *AMPHETAMINES SCREEN URINE NEGATIVE (NEGATIVE)
[2018-10-07 00:37] LABS: *BARBITURATES SCREEN URINE NEGATIVE (NEGATIVE); *BENZODIAZEPINES SCREEN URINE NEGATIVE (NEGATIVE); *COCAINE SCREEN URINE NEGATIVE (NEGATIVE)
[2018-10-07 00:38] LABS: CANNABINOID URINE SCREEN NEGATIVE (NEGATIVE); METHADONE URINE SCREEN NEGATIVE (NEGATIVE); PHENCYCLIDINE URINE SCREEN NEGATIVE (NEGATIVE)
[2018-10-07] MEDS ORDERED: LEVOFLOXACIN 500MG PREMIX 100 ML IV SCH (01:00)
[2018-10-07 01:03] LABS: OPIATES URINE SCREEN NEGATIVE (NEGATIVE)
[2018-10-07 01:45] LABS: FOLIC ACID (FOLATE) SERUM >20 ng/mL ng/mL (>5.38)
[2018-10-07 01:56] LABS: VITAMIN B12 SERUM 191 pg/mL (211-911)
[2018-10-07 02:05] LABS: T4 FREE 1.4 ng/dL (0.76-1.46)
[2018-10-07 06:44] LABS: CREATINE KINASE MB FRACTION 4.3 ng/mL (0.5-3.6)
[2018-10-07] MEDS: ACETAMINOPHEN 325MG TABLET PO PRN ×2 (07:00→20:37)
[2018-10-07] MEDS: ASPIRIN 325MG EC TABLET PO SCH (08:43)
[2018-10-07] MEDS: ZINC SULFATE 220 MG ( 50 ) CAPSULE PO SCH (08:43)
[2018-10-07] MEDS: TAMSULOSIN HCL 0.4MG SR CAPSULE PO SCH (08:45)
[2018-10-07] MEDS: FAMOTIDINE 20MG TABLET PO SCH (08:46)
[2018-10-07] MEDS: ASCORBIC ACID 500 MG TABLET PO SCH ×2 (08:46→20:36)
[2018-10-07] MEDS ORDERED: DUTASTERIDE 0.5MG CAPSULE PO SCH ×2 (09:00)
[2018-10-07] MEDS ORDERED: ENOXAPARIN 30MG/0.3ML SYR SUBCUT SCH (09:00)
[2018-10-07] MEDS ORDERED: METOPROLOL TARTRATE 25MG TABLET PO SCH (09:00)
[2018-10-07] MEDS ORDERED: FAMOTIDINE 20MG TABLET PO SCH (09:00)
[2018-10-07 13:22] LABS: BASOPHILS % 0.2 % (0.0-2.0); EOSINOPHILS % 0.1 % (0.0-5.0); HEMATOCRIT. 36.4 % (42.0-52.0); HEMOGLOBIN. 11.9 g/dL (14.0-18.0); MEAN CORPUSCULAR HEMOGLOBIN 28.6 pg (28.0-32.0); MEAN CORPUSCULAR VOLUME 87.1 fL (80.0-94.0); MEAN PLATELET VOLUME 9.1 fl (7.4-10.4); MONOCYTES % 8.9 % (2.0-8.0); NEUTROPHILS % 82.8 % (40.0-76.0); PLATELET 130 x1000/uL (130-400); RED BLOOD CELL COUNT 4.18 mill/uL (4.7-6.1); RED CELL DISTRIBUTION WIDTH 15.6 % (11.6-14.6)
[2018-10-07 13:30] LABS: CHLORIDE 105 mEq/L (98-107)
[2018-10-07] MEDS ORDERED: ALBUMIN HUMAN 12.5G/250ML (5%) IV NR (14:00)
[2018-10-07] MEDS: CEFTRIAXONE 1 G PREMIX 50 ML IV SCH (14:46)
[2018-10-07 16:44] LABS: CREATINE KINASE MB FRACTION 2.7 ng/mL (0.5-3.6)
[2018-10-07] MEDS: METOPROLOL TARTRATE 25MG TABLET PO SCH (20:37)
[2018-10-07] MEDS: LEVOFLOXACIN 250MG PREMIX 50 ML IV SCH (21:42)
[2018-10-07] MEDS ORDERED: CEFTRIAXONE 1 G PREMIX 50 ML IV SCH (23:00)
[2018-10-08] VITALS: BP 110/64
[2018-10-08 04:00] VITALS: BP 91/61
[2018-10-08] MEDS: SODIUM CHLORIDE 0.9% 1,000 ML IV SCH ×4 (05:38→22:13)
[2018-10-08 07:19] LABS: BASOPHILS % 0.1 % (0.0-2.0); EOSINOPHILS % 0.5 % (0.0-5.0); HEMATOCRIT. 35.3 % (42.0-52.0); HEMOGLOBIN. 11.5 g/dL (14.0-18.0); LYMPHOCYTES % 8.2 % (20.0-50.0); MEAN CORPUSCULAR HEMOGLOBIN 28.3 pg (28.0-32.0); MEAN CORPUSCULAR VOLUME 87.2 fL (80.0-94.0); MEAN PLATELET VOLUME 8.7 fl (7.4-10.4); MONOCYTES % 11.1 % (2.0-8.0); NEUTROPHILS % 80.1 % (40.0-76.0); PLATELET 134 x1000/uL (130-400); RED BLOOD CELL COUNT 4.05 mill/uL (4.7-6.1); RED CELL DISTRIBUTION WIDTH 15.8 % (11.6-14.6)
[2018-10-08 08:00] VITALS: BP 115/73
[2018-10-08] MEDS: ENOXAPARIN 40MG/0.4ML SYR SUBCUT SCH (08:43)
[2018-10-08] MEDS: TAMSULOSIN HCL 0.4MG SR CAPSULE PO SCH (08:44)
[2018-10-08] MEDS: ZINC SULFATE 220 MG ( 50 ) CAPSULE PO SCH (08:44)
[2018-10-08] MEDS: ASPIRIN 325MG EC TABLET PO SCH (08:44)
[2018-10-08] MEDS: FAMOTIDINE 20MG TABLET PO SCH (08:44)
[2018-10-08] MEDS: METOPROLOL TARTRATE 25MG TABLET PO SCH ×2 (08:45→22:10)
[2018-10-08] MEDS: ASCORBIC ACID 500 MG TABLET PO SCH ×2 (09:00→22:10)
[2018-10-08 12:16] VITALS: BP 117/65
[2018-10-08] MEDS: MAGNESIUM OXIDE 400MG TABLET PO SCH (12:45)
[2018-10-08] MEDS: CEFTRIAXONE 1 G PREMIX 50 ML IV SCH (15:42)
[2018-10-08 16:00] VITALS: BP 103/60
[2018-10-08 20:00] VITALS: BP 104/67
[2018-10-08] MEDS: LEVOFLOXACIN 250MG PREMIX 50 ML IV SCH (22:11)
[2018-10-09 00:28] VITALS: BP 108/69
[2018-10-09 04:00] VITALS: BP 165/90
[2018-10-09 07:13] LABS: CHLORIDE 110 mEq/L (98-107)
[2018-10-09 07:15] LABS: BASOPHILS % 0.3 % (0.0-2.0); EOSINOPHILS % 0.9 % (0.0-5.0); HEMATOCRIT. 35.5 % (42.0-52.0); HEMOGLOBIN. 11.6 g/dL (14.0-18.0); LYMPHOCYTES % 14.3 % (20.0-50.0); MEAN CORPUSCULAR HEMOGLOBIN 28.2 pg (28.0-32.0); MEAN CORPUSCULAR VOLUME 86.8 fL (80.0-94.0); MEAN PLATELET VOLUME 8.4 fl (7.4-10.4); MONOCYTES % 14.2 % (2.0-8.0); NEUTROPHILS % 70.3 % (40.0-76.0); PLATELET 163 x1000/uL (130-400); RED BLOOD CELL COUNT 4.09 mill/uL (4.7-6.1)
[2018-10-09 08:00] VITALS: BP 122/76
[2018-10-09] MEDS: ZINC SULFATE 220 MG ( 50 ) CAPSULE PO SCH (08:57)
[2018-10-09] MEDS: ASCORBIC ACID 500 MG TABLET PO SCH ×2 (08:57→21:14)
[2018-10-09] MEDS: MAGNESIUM OXIDE 400MG TABLET PO SCH (08:57)
[2018-10-09] MEDS: ENOXAPARIN 40MG/0.4ML SYR SUBCUT SCH (08:57)
[2018-10-09] MEDS: ASPIRIN 325MG EC TABLET PO SCH (08:58)
[2018-10-09] MEDS: FAMOTIDINE 20MG TABLET PO SCH (08:58)
[2018-10-09] MEDS: METOPROLOL TARTRATE 25MG TABLET PO SCH ×2 (08:58→20:20)
[2018-10-09] MEDS: TAMSULOSIN HCL 0.4MG SR CAPSULE PO SCH (09:00)
[2018-10-09 12:00] VITALS: BP 128/69
[2018-10-09] MEDS: CEFTRIAXONE 1 G PREMIX 50 ML IV SCH (15:08)
[2018-10-09 16:00] VITALS: BP 106/53
[2018-10-09] MEDS: SODIUM CHLORIDE 0.9% 1,000 ML IV SCH (17:06)
[2018-10-09 20:00] VITALS: BP 91/47
[2018-10-09] MEDS: LEVOFLOXACIN 250MG PREMIX 50 ML IV SCH (21:14)
[2018-10-10] VITALS (7 sets, daily range): BP systolic 97–113; BP diastolic 60–68
[2018-10-10 07:05] LABS: CHLORIDE 110 mEq/L (98-107)
[2018-10-10 07:32] LABS: BASOPHILS % 0.4 % (0.0-2.0); EOSINOPHILS % 2.5 % (0.0-5.0); HEMATOCRIT. 32.9 % (42.0-52.0); HEMOGLOBIN. 10.7 g/dL (14.0-18.0); LYMPHOCYTES % 15.7 % (20.0-50.0); MEAN CORPUSCULAR HEMOGLOBIN 28.4 pg (28.0-32.0); MEAN CORPUSCULAR VOLUME 87.2 fL (80.0-94.0); MEAN PLATELET VOLUME 8.7 fl (7.4-10.4); MONOCYTES % 13.2 % (2.0-8.0); NEUTROPHILS % 68.2 % (40.0-76.0); PLATELET 168 x1000/uL (130-400); RED BLOOD CELL COUNT 3.78 mill/uL (4.7-6.1); RED CELL DISTRIBUTION WIDTH 15.5 % (11.6-14.6)
[2018-10-10] MEDS: FAMOTIDINE 20MG TABLET PO SCH (08:45)
[2018-10-10] MEDS: MAGNESIUM OXIDE 400MG TABLET PO SCH (08:45)
[2018-10-10] MEDS: ASCORBIC ACID 500 MG TABLET PO SCH ×2 (08:45→20:02)
[2018-10-10] MEDS: ZINC SULFATE 220 MG ( 50 ) CAPSULE PO SCH (08:45)
[2018-10-10] MEDS: ASPIRIN 325MG EC TABLET PO SCH (08:45)
[2018-10-10] MEDS: TAMSULOSIN HCL 0.4MG SR CAPSULE PO SCH (08:46)
[2018-10-10] MEDS: METOPROLOL TARTRATE 25MG TABLET PO SCH ×2 (08:46→19:50)
[2018-10-10] MEDS: ENOXAPARIN 40MG/0.4ML SYR SUBCUT SCH (08:47)
[2018-10-10] MEDS: CEFTRIAXONE 1 G PREMIX 50 ML IV SCH (14:31)
[2018-10-10] MEDS ORDERED: LEVOFLOXACIN 500MG TABLET PO SCH (21:00)
== END 2018-10-10 20:10 | disposition home health service (06) | DRG 871 ==
LOC: ER 21:57 → 7WST 22:34 → SUPCPDRO 22:38 → ENRESERV 10-07 02:55 → 7WST 10-07 04:16
PROVIDERS: ADMIT Internal Medicine; ATTEND Internal Medicine
DX: A41.50 Gram-negative sepsis, unspecified (principal); I21.4 Non-ST elevation (NSTEMI) myocardial infarction; G92 Toxic encephalopathy; E44.1 Mild protein-calorie malnutrition; I42.9 Cardiomyopathy, unspecified; N13.8 Other obstructive and reflux uropathy; N17.9 Acute kidney failure, unspecified; I48.91 Unspecified atrial fibrillation; E11.9 Type 2 diabetes mellitus without complications; E83.42 Hypomagnesemia; F03.90 Unspecified dementia, unspecified severity, without behavioral disturbance, psychotic disturbance, mood disturbance, and anxiety; H91.10 Presbycusis, unspecified ear; I11.9 Hypertensive heart disease without heart failure; I49.3 Ventricular premature depolarization; N40.1 Benign prostatic hyperplasia with lower urinary tract symptoms; Z87.440 Personal history of urinary (tract) infections; Z79.899 Other long term (current) drug therapy; Z68.28 Body mass index [BMI] 28.0-28.9, adult
CPT/HCPCS: 36415; 71045; 80048; 80061; 80305; 82550; 82553; 82607; 82746; 83036; 83540; 83550; 83735; 83880; 84145; 84439; 84443; 84484; 87077; 87186; 93005; 93306; 93970; 96365; 97162; 99291; J0696; J1650; J1956; P9041